=== PATIENT | male | born 1990 | race Two or more races ===

== ENCOUNTER 2024-01-10 00:34 | Emergency (ER) | payer OTHER ==
[~2024-01-10] VITALS: Ht 167.6 cm; Wt 102.0 kg
[2024-01-10 00:53] LABS: BASOPHILS # (AUTO) 0.1 X10'3 (0-0.2); BASOPHILS % (AUTO) 0.8 % (0-1); EOSINOPHILS % (AUTO) 0.2 % (0-6); HEMOGLOBIN 15.8 g/dl (14.0-17.9); LYMPHOCYTES # (AUTO) 1.9 X10'3 (1.1-4.8); LYMPHOCYTES % (AUTO) 23.9 % (21-51); MEAN CORPUSCULAR HEMOGLOBIN 30.4 PG (27.0-31.0); MEAN CORPUSCULAR HGB CONC 34.3 g/dL (33.0-36.5); MEAN CORPUSCULAR VOLUME 88.6 FL (78-98); MEAN PLATELET VOLUME 8.2 FL (7.4-10.4); MONOCYTES # (AUTO) 0.7 X10'3 (0-0.9); NEUTROPHILS # (AUTO) 5.1 X10'3 (1.8-7.7); NEUTROPHILS % (AUTO) 66.1 % (42-75); PLATELET COUNT 147 X10'3 (140-440); RED CELL DISTRIBUTION WIDTH 13.5 % (11.5-14.5); WHITE BLOOD COUNT 7.8 X10'3 (4.5-11.0)
[2024-01-10 01:06] LABS: ALANINE AMINOTRANSFERASE 130 U/L (12-78); ALBUMIN 4.3 G/DL (3.4-5.0); ALBUMIN/GLOBULIN RATIO 1.1 (1.1-1.5); ALKALINE PHOSPHATASE 87 IU/L (46-116); ANION GAP 15 (8-16); ASPARTATE AMINO TRANSFERASE 138 U/L (10-37); BILIRUBIN,TOTAL 1.3 MG/DL (0.1-1.0); BLOOD UREA NITROGEN 5 MG/DL (7-18); BUN/CREATININE RATIO 5.5 (10.0-20.0); CALCIUM 8.4 MG/DL (8.5-10.1); CHLORIDE 96 MMOL/L (99-107); CREATININE 0.91 MG/DL (0.60-1.10); GLUCOSE 109 MG/DL (70-104); POTASSIUM 3.8 MMOL/L (3.5-5.1); SODIUM 134 MMOL/L (135-145); TOTAL CARBON DIOXIDE 23.4 MMOL/L (24-32); TOTAL PROTEIN 8.2 G/DL (6.4-8.2); eCRCL 102 ML/MIN; eGFR > 90 ML/MIN
[2024-01-10 01:08] LABS: PROTHROMBIN TIME 10.9 SECONDS (9.0-12.0)
[2024-01-10 01:09] LABS: LIPASE 39 U/L (16-77)
[2024-01-10 01:42] LABS: BILIRUBIN,URINE NEGATIVE (Neg); CLARITY,URINE CLEAR (Clear); COLOR,URINE YELLOW (Yellow); GLUCOSE, URINE NEGATIVE (Neg); KETONES,URINE 15 mg/dl (Neg); LEUKOCYTE ESTERASE ,URINE NEGATIVE (Neg); NITRITES, URINE NEGATIVE (Neg); OCCULT BLOOD,URINE TRACE-INTACT (Neg); PROTEIN,URINE 30 mg/dl (Neg); UROBILINOGEN,URINE 0.2 E.U/dL (0.2-1.0)
[2024-01-10 01:54] LABS: UA COLLECTION TYPE CLN CATCH MIDSTREAM
[2024-01-10 01:59] LABS: RBC,URINE 0-2 /HPF (0-2); WBC,URINE 0-4 /HPF (0-4)
[2024-01-10 02:00] LABS: AMORPHOUS PHOSPHATES 1+; BACTERIA,URINE NONE SEEN /HPF (Neg); MUCUS STRANDS NONE SEEN /LPF (Neg); SQUAMOUS EPITHELIAL CELL,UR NONE SEEN /LPF (FEW); URINE AMPHETAMINE SCREEN NEGATIVE (Neg); URINE BARBITUATE SCREEN NEGATIVE (Neg); URINE BENZODIAZEPINES SCREEN NEGATIVE (Neg); URINE CANNABINOID SCREEN NEGATIVE (Neg); URINE COCAINE SCREEN NEGATIVE (Neg); URINE METHADONE SCREEN NEGATIVE (Neg); URINE OPIATE SCREEN NEGATIVE (Neg); URINE PHENCYCLIDINE SCREEN NEGATIVE (Neg)
[2024-01-10] MEDS: normal saline 1000ml 1,000 ML IV ONE (02:55)
[2024-01-10 04:12] LABS: BASOPHILS % (AUTO) 0.7 % (0-1); EOSINOPHILS % (AUTO) 0.4 % (0-6); HEMOGLOBIN 14.6 g/dl (14.0-17.9); LYMPHOCYTES # (AUTO) 1.5 X10'3 (1.1-4.8); LYMPHOCYTES % (AUTO) 25.3 % (21-51); MEAN CORPUSCULAR HEMOGLOBIN 30.3 PG (27.0-31.0); MEAN CORPUSCULAR HGB CONC 33.9 g/dL (33.0-36.5); MEAN CORPUSCULAR VOLUME 89.3 FL (78-98); MEAN PLATELET VOLUME 8.2 FL (7.4-10.4); MONOCYTES # (AUTO) 0.5 X10'3 (0-0.9); MONOCYTES % (AUTO) 8.8 % (2-12); NEUTROPHILS # (AUTO) 3.9 X10'3 (1.8-7.7); NEUTROPHILS % (AUTO) 64.8 % (42-75); PLATELET COUNT 131 X10'3 (140-440); RED BLOOD COUNT 4.81 X10'6 (4.70-6.10); RED CELL DISTRIBUTION WIDTH 13.6 % (11.5-14.5)
[2024-01-10 05:24] VITALS: BP 141/72; PULSE 90; RESP 14; TEMP 98.4; O2SAT 95
== END 2024-01-10 05:54 | disposition home or self-care (01) ==
LOC: ER 00:35
DX: K92.0 Hematemesis (principal); R10.13 Epigastric pain
CPT/HCPCS: 36415; 71045; 80053; 80305; 81001; 83690; 84484; 85025; 85610; 96360; 99285; J7030